=== PATIENT | male | born 1985 | race Two or more races ===

== ENCOUNTER 2018-03-01 11:01 | Emergency (ER) | payer SELFPAY ==
[~2018-03-01] VITALS: Ht 182.9 cm; Wt 86.2 kg
[2018-03-01 11:03] VITALS: BP 112/72
[2018-03-01] MEDS ORDERED: NKM (11:04)
[2018-03-01] MEDS ORDERED: Ketorolac 30mg Inj IV ONE (11:15)
--- NOTE | 2018-03-01 12:34 | Diagnostic Imaging Report ---
Indication: Pain status post trauma Technique: XRAY Knee Compl 4v+ R Comparison: None Findings: Limited/suboptimal positioning on lateral view. No definite evidence to suggest patellar tendon injury however correlation with physical exam recommended. Bony mineralization is within normal limits. There is no evidence of acute fracture or dislocation. No significant suprapatellar joint effusion. No radiopaque foreign body. IMPRESSION: No evidence of acute fracture. Suboptimal positioning on lateral view. Patellar height likely within normal limits.
--- NOTE | 2018-03-01 12:37 | Diagnostic Imaging Report ---
Indication: Pain, trauma Technique: XRAY Wrist Complete R Comparison: None Findings: Bony mineralization is within normal limits. There is no acute fracture or dislocation. Anatomic alignment and joint spaces are preserved. No radiopaque foreign body identified. Impression: No acute fracture or dislocation.
--- NOTE | 2018-03-01 12:49 | Diagnostic Imaging Report ---
Indication: Pain status post trauma Technique: XRAY Hand Complete R Comparison: None Findings: Bony mineralization is within normal limits. There is no acute fracture or dislocation. Anatomic alignment and joint spaces are preserved. No radiopaque foreign body identified. Impression: No acute fracture or dislocation.
--- NOTE | 2018-03-01 12:53 | Diagnostic Imaging Report ---
Indication: Pain status post injury Technique: XRAY Humerus 2v R Comparison: None Findings: Bony mineralization is within normal limits. There is no evidence of acute fracture or dislocation. Imaged portions of the right lung are clear. No radiopaque foreign body identified. Impression: No evidence of acute fracture or dislocation.
--- NOTE | 2018-03-01 12:55 | Diagnostic Imaging Report ---
Indication: Pain status post trauma Technique: XRAY Forearm 2v R Comparison: None Findings: Bony mineralization is within normal limits. There is no evidence of acute fracture or dislocation. Partially imaged elbow joint is unremarkable. No evidence to suggest elbow joint effusion. Wrist articulations are also preserved. No radiopaque foreign body identified. Impression: No acute fracture or dislocation.
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
[2018-03-01] MEDS ORDERED: IBUPROFEN800 MG ORAL (14:04)
[2018-03-01 14:25] VITALS: BP 130/84
== END 2018-03-01 14:25 | disposition home or self-care (01) ==
LOC: EDBD 11:01 → EMR 11:35
DX: S60.031A Contusion of right middle finger without damage to nail, initial encounter (principal); S50.11XA Contusion of right forearm, initial encounter; S80.01XA Contusion of right knee, initial encounter; S80.11XA Contusion of right lower leg, initial encounter; V19.88XA Pedal cyclist (driver) (passenger) injured in other specified transport accidents, initial encounter; Y93.55 Activity, bike riding; Y92.89 Other specified places as the place of occurrence of the external cause
CPT/HCPCS: 96374; 99284